=== PATIENT | female | born 1970 | race Caucasian/White ===

== ENCOUNTER 2020-07-07 12:00 | Inpatient (IN) | payer OTHER ==
[~2020-07-07] VITALS: Ht 167.6 cm; Wt 126.3 kg
[2020-07-07 10:38] LABS: APPEARANCE,URINE Clear (CLEAR); BILIRUBIN,URINE Negative (NEGATIVE); COLOR,URINE Yellow (YELLOW); GLUCOSE, URINE (UA) Negative (NEGATIVE); KETONES,URINE Negative (NEGATIVE); LEUKOCYTE ESTERASE ,URINE Small (NEGATIVE); NITRATE,URINE Negative (NEGATIVE); OCCULT BLOOD,URINE Negative (NEGATIVE); PROTEIN,URINE Negative (NEGATIVE)
[2020-07-07 10:40] LABS: EOSINOPHILS % (AUTO) 5.4 % (0.0-8.0); HEMATOCRIT 45.6 % (36-48); MEAN CORPUSCULAR HEMOGLOBIN 29.6 pg (27.0-33.0); MEAN CORPUSCULAR HGB CONC 30.9 g/dL (32.0-36.0); MEAN CORPUSCULAR VOLUME 95.6 fL (79-99); MONOCYTES % (AUTO) 7.3 % (3.0-13.0); PLATELET COUNT (AUTO) 248 K/uL (130-400); RED BLOOD CELL COUNT(AUTO) 4.77 MIL/uL (4.00-5.50); WHITE BLOOD COUNT (AUTO) 7.2 K/uL (4.8-10.8)
[2020-07-07 10:45] LABS: CREATININE 0.8 mg/dL (0.5-1.5); POTASSIUM 5.1 mmol/L (3.5-5.1)
[2020-07-07 10:48] LABS: INR 0.94 (0.85-1.15); PROTHROMBIN TIME 10.3 SEC (9.6-11.6)
[2020-07-07 11:31] LABS: BACTERIA,URINE Rare /HPF (None Seen); RBC,URINE None Seen /HPF (0-1); YEAST,URINE BUDDING Few /HPF (None Seen)
[2020-07-08 16:16] VITALS: BP 144/89
[2020-07-08] MEDS ORDERED: VENL-191 PO (16:43)
[2020-07-08] MEDS ORDERED: ACET1TAB25 PO (16:43)
[2020-07-11] VITALS (23 sets, daily range): BP systolic 96–161; BP diastolic 50–97
[2020-07-11] MEDS ORDERED: LACTATED RINGERS 1000ML 1,000 ML IV ONE (06:48)
[2020-07-11] MEDS ORDERED: CEFAZOLIN SODIUM 1 GM VIAL ONE ×2 (07:10→08:09)
[2020-07-11] MEDS ORDERED: PROPOFOL 10 MG/ML 20ML VIAL IV ONE (07:43)
[2020-07-11] MEDS ORDERED: ROCURONIUM 10MG/1ML SYR 10 MG/ML ML ONE ×2 (07:43→10:43)
[2020-07-11] MEDS ORDERED: LIDOCAINE PF 100MG/5ML (2%) SYRINGE 5ML ONE (07:43)
[2020-07-11] MEDS ORDERED: SUCCINYLCHOLINE CHLORIDE 20 MG/ML 10 ML VIAL ONE (07:43)
[2020-07-11] MEDS ORDERED: FENTANYL CITRATE PF 50 MCG/1 ML 2ML VIAL ONE ×2 (07:44→12:19)
[2020-07-11] MEDS ORDERED: ROPIVACAINE 0.5% 5MG/ML 30ML IJ ONE (07:47)
[2020-07-11] MEDS ORDERED: CEFAZOLIN SODIUM 100 GM IV PRN (08:00)
[2020-07-11] MEDS ORDERED: GENTAMICIN SULFATE 240 MG in 0.9%NACL 100ML 100 ML IV PRN (08:00)
[2020-07-11] MEDS ORDERED: TRANEXAMIC ACID 1000MG/10ML ONE ×2 (08:09→13:08)
[2020-07-11] MEDS ORDERED: ACETAMINOPHEN 500 MG TABLET ONE (08:28)
[2020-07-11] MEDS ORDERED: METOCLOPRAMIDE 10 MG/2 ML VIAL ONE (08:28)
[2020-07-11] MEDS ORDERED: KETOROLAC 15MG/ML VIAL (15MG/ML) ONE (08:29)
[2020-07-11] MEDS ORDERED: CELECOXIB 200 MG CAP ONE (08:29)
[2020-07-11] MEDS ORDERED: MIDAZOLAM HCL 1 MG/ML 2ML VIAL ONE (09:46)
[2020-07-11] MEDS ORDERED: NEOSTIGMINE 5MG/5ML SYR IV ONE (12:03)
[2020-07-11] MEDS ORDERED: GLYCOPYRROLATE 1 MG/5 ML SYRINGE ONE (12:03)
[2020-07-11] MEDS ORDERED: MEPERIDINE-PF 25 MG/ML SYG ONE ×3 (12:11→13:22)
[2020-07-11] MEDS ORDERED: ONDANSETRON 4MG INJ ONE (12:11)
[2020-07-11] MEDS ORDERED: KETOROLAC 30MG VIAL (30MG/ML) ONE (12:11)
[2020-07-11] MEDS ORDERED: LIDOCAINE HCL-MPF 1% 2ML VIAL IV PRN (12:30)
[2020-07-11] MEDS ORDERED: CALCIUM CARB 500MG PO PRN (12:30)
[2020-07-11] MEDS: ACETAMINOPHEN 500 MG TABLET PO SCH ×2 (12:30→20:46)
[2020-07-11] MEDS ORDERED: KCL 20 MEQ ERTAB PO PRN (12:30)
[2020-07-11] MEDS ORDERED: POTASSIUM CHLORIDE 20MEQ/100ML 100 ML IV PRN (12:30)
[2020-07-11] MEDS ORDERED: POTASSIUM CHLORIDE 10% ELIXIR 20 MEQ/15 ML UDCUP PO PRN (12:30)
[2020-07-11] MEDS ORDERED: OXYCODONE HCL 5 MG TAB PO PRN (12:30)
[2020-07-11] MEDS ORDERED: FERROUS FUMARATE 324 MG TABLET PO PRN (12:30)
[2020-07-11] MEDS ORDERED: TEMAZEPAM 15 MG CAPSULE PO PRN (12:30)
[2020-07-11] MEDS ORDERED: DiphenhydrAMINE HCL 50 MG/ML VIAL IVP PRN (12:30)
[2020-07-11] MEDS ORDERED: ONDANSETRON 4MG INJ IVP PRN (12:30)
[2020-07-11] MEDS ORDERED: MORPHINE 2 MG SYG ONE (13:34)
[2020-07-11] MEDS: KETOROLAC 15MG/ML VIAL (15MG/ML) IV PRN (14:09)
[2020-07-11] MEDS: 0.9%NACL 1000ML 1,000 ML IV SCH (14:10)
[2020-07-11] MEDS: OXYCODONE HCL 5 MG TAB PO PRN ×2 (15:02→20:49)
[2020-07-11] MEDS: CEFAZOLIN SODIUM 100 GM IV SCH (17:43)
[2020-07-11] MEDS: CELECOXIB 200 MG CAP PO SCH (20:43)
[2020-07-11] MEDS: FAMOTIDINE 20MG TAB PO SCH (20:43)
[2020-07-11] MEDS: PREGABALIN 25 MG CAP PO SCH (20:43)
[2020-07-11] MEDS: ASPIRIN 81MG CHEW TAB PO SCH (20:43)
[2020-07-12] MEDS: CEFAZOLIN SODIUM 100 GM IV SCH (01:30)
[2020-07-12] MEDS: KETOROLAC 15MG/ML VIAL (15MG/ML) IV PRN ×3 (02:48→15:06)
[2020-07-12] MEDS: OXYCODONE HCL 5 MG TAB PO PRN ×4 (02:49→18:55)
[2020-07-12 04:02] VITALS: BP 117/50
[2020-07-12] MEDS: ACETAMINOPHEN 500 MG TABLET PO SCH ×3 (04:30→19:53)
[2020-07-12 05:03] LABS: MEAN CORPUSCULAR HGB CONC 31.7 g/dL (32.0-36.0); MEAN CORPUSCULAR VOLUME 94.7 fL (79-99); RED BLOOD CELL COUNT(AUTO) 3.8 MIL/uL (4.00-5.50); RED CELL DISTRIBUTION WIDTH 13.1 % (11.0-15.5); WHITE BLOOD COUNT (AUTO) 9.5 K/uL (4.8-10.8)
[2020-07-12 05:21] LABS: CREATININE 0.9 mg/dL (0.5-1.5); POTASSIUM 3.9 mmol/L (3.5-5.1)
[2020-07-12] MEDS: TRAMADOL HCL 50 MG TABLET PO PRN ×2 (06:05→13:38)
[2020-07-12 07:00] VITALS: BP 106/58
[2020-07-12] MEDS: 0.9%NACL 1000ML 1,000 ML IV SCH (08:30)
[2020-07-12] MEDS: PREGABALIN 25 MG CAP PO SCH ×2 (09:02→19:52)
[2020-07-12] MEDS: CELECOXIB 200 MG CAP PO SCH ×2 (09:02→19:53)
[2020-07-12] MEDS: VENLAFAXINE HCL 75 MG TAB PO SCH (09:02)
[2020-07-12] MEDS: ASPIRIN 81MG CHEW TAB PO SCH ×2 (09:03→19:52)
[2020-07-12] MEDS: POLYETHYLENE GLYCOL 3350 17 GM POWD.PACK PO SCH (09:03)
[2020-07-12] MEDS: FAMOTIDINE 20MG TAB PO SCH ×2 (09:03→20:09)
[2020-07-12 11:30] VITALS: BP 128/51
[2020-07-12 16:00] VITALS: BP 132/62
[2020-07-12 20:01] VITALS: BP 106/49
[2020-07-13 00:33] VITALS: BP 119/68
[2020-07-13] MEDS: KETOROLAC 15MG/ML VIAL (15MG/ML) IV PRN ×3 (02:14→15:10)
[2020-07-13] MEDS: OXYCODONE HCL 5 MG TAB PO PRN ×4 (02:15→19:56)
[2020-07-13] MEDS: ACETAMINOPHEN 500 MG TABLET PO SCH ×3 (04:30→16:53)
[2020-07-13 04:37] VITALS: BP 102/57
[2020-07-13 08:00] VITALS: BP 131/69
[2020-07-13] MEDS: ASPIRIN 81MG CHEW TAB PO SCH ×2 (09:06→19:55)
[2020-07-13] MEDS: CELECOXIB 200 MG CAP PO SCH ×2 (09:07→19:55)
[2020-07-13] MEDS: POLYETHYLENE GLYCOL 3350 17 GM POWD.PACK PO SCH (09:07)
[2020-07-13] MEDS: VENLAFAXINE HCL 75 MG TAB PO SCH (09:07)
[2020-07-13] MEDS: FAMOTIDINE 20MG TAB PO SCH ×2 (09:07→19:55)
[2020-07-13] MEDS: PREGABALIN 25 MG CAP PO SCH ×2 (09:07→19:55)
[2020-07-13 12:00] VITALS: BP 120/55
[2020-07-13 16:00] VITALS: BP 126/57
[2020-07-13 20:00] VITALS: BP 113/65
[2020-07-13] MEDS ORDERED: ASPI-1005 PO (20:18)
[2020-07-13] MEDS ORDERED: HYDR-4060 PO (20:18)
[2020-07-14] MEDS ORDERED: BISACODYL 10 MG SUPP.RECT RC PRN (12:30)
== END 2020-07-13 21:40 | disposition home health service (06) | DRG 302 ==
LOC: EDSTATUS 12:00 → DAHIP 07-11 05:41 → 4AH 07-11 12:58
PROVIDERS: ADMIT Orthopaedic Surgery; ATTEND Orthopaedic Surgery
PROC: 0SRC0J9 Replacement of Right Knee Joint with Synthetic Substitute, Cemented, Open Approach (ICD-10-PCS; principal; 2020-07-11 09:30)
DX: M17.0 Bilateral primary osteoarthritis of knee (principal); E66.01 Morbid (severe) obesity due to excess calories; Z20.822 Contact with and (suspected) exposure to COVID-19; G89.29 Other chronic pain; D64.9 Anemia, unspecified; Z68.41 Body mass index [BMI] 40.0-44.9, adult
CPT/HCPCS: 36415; 80048; 81001; 85025; 85027; 85610; 87641; 97039; G0378; J0330; J0690; J1200; J1580; J1885; J2001; J2175; J2250; J2405; J2704; J2710; J2765; J2795; J3010; J3490; J7120; U0003

== ENCOUNTER 2021-01-26 16:00 | Observation (INO) | payer OTHER ==
[~2021-01-26] VITALS: Ht 165.1 cm; Wt 124.2 kg
[2021-01-26 10:30] LABS: APPEARANCE,URINE CLEAR (CLEAR); BILIRUBIN,URINE SMALL (NEGATIVE); COLOR,URINE YELLOW (YELLOW); GLUCOSE, URINE (UA) NEGATIVE (NEGATIVE); KETONES,URINE 5 mg/dL (NEGATIVE); LEUKOCYTE ESTERASE ,URINE TRACE (NEGATIVE); NITRATE,URINE NEGATIVE (NEGATIVE); OCCULT BLOOD,URINE NEGATIVE (NEGATIVE); PROTEIN,URINE NEGATIVE (NEGATIVE); UROBILINOGEN,URINE 0.2 mg/dL (0.2-1.0)
[2021-01-26 10:34] LABS: BASOPHILS % (AUTO) 1.1 % (0.0-5.0); EOSINOPHILS % (AUTO) 5.4 % (0.0-8.0); HEMATOCRIT 44.4 % (36-48); LYMPHOCYTES % (AUTO) 30.4 % (21.0-51.0); MEAN CORPUSCULAR HEMOGLOBIN 31.5 pg (27.0-33.0); MEAN CORPUSCULAR HGB CONC 31.8 g/dL (32.0-36.0); MEAN CORPUSCULAR VOLUME 99.3 fL (79-99); MONOCYTES % (AUTO) 5.9 % (3.0-13.0); NEUTROPHILS % (AUTO) 56.7 % (40.0-77.0); PLATELET COUNT (AUTO) 257 K/uL (130-400); RED BLOOD CELL COUNT(AUTO) 4.47 MIL/uL (4.00-5.50); RED CELL DISTRIBUTION WIDTH 12.7 % (11.0-15.5); WHITE BLOOD COUNT (AUTO) 6.5 K/uL (4.8-10.8)
[2021-01-26 10:46] LABS: INR 0.94 (0.85-1.15); PROTHROMBIN TIME 10.3 SEC (9.6-11.6)
[2021-01-26 10:57] LABS: CREATININE 0.9 mg/dL (0.5-1.5); POTASSIUM 4.4 mmol/L (3.5-5.1)
[2021-01-26 11:03] LABS: BACTERIA,URINE Moderate /HPF (None Seen); RBC,URINE None Seen /HPF (0-1); SQUAMOUS EPITHELIAL CELL,UR Rare /HPF (0-2); WBC,URINE 0-1 /HPF (0-1)
[~2021-01-26 16:00] MED LIST: VENL-191 PO
[2021-01-27 12:23] VITALS: BP 173/83
[2021-01-27] MEDS ORDERED: NAPR-1196 PO (12:52)
[2021-01-27] MEDS ORDERED: ACET-66 PO (12:52)
[2021-01-30] VITALS (21 sets, daily range): BP systolic 110–187; BP diastolic 64–111
[2021-01-30] MEDS ORDERED: LACTATED RINGERS 1000ML 1,000 ML IV ONE (09:37)
[2021-01-30] MEDS: CEFAZOLIN SODIUM 1 GM VIAL ONE ×2 (10:13→14:46)
[2021-01-30] MEDS ORDERED: ACETAMINOPHEN 500 MG TABLET ONE (13:10)
[2021-01-30] MEDS ORDERED: CELECOXIB 200 MG CAP ONE (13:10)
[2021-01-30] MEDS ORDERED: TRANEXAMIC ACID 1000MG/10ML ONE ×3 (13:11→16:45)
[2021-01-30] MEDS ORDERED: CEFAZOLIN SODIUM 1 GM VIAL ONE ×2 (13:33→19:34)
[2021-01-30] MEDS ORDERED: NEOSTIGMINE 5MG/5ML SYR IV ONE (13:59)
[2021-01-30] MEDS ORDERED: ONDANSETRON 4MG INJ ONE (13:59)
[2021-01-30] MEDS ORDERED: PROPOFOL 10 MG/ML 20ML VIAL IV ONE (13:59)
[2021-01-30] MEDS ORDERED: DEXAMETHASONE SOD PHOSPHATE 10MG/ML 1ML VIAL ONE (13:59)
[2021-01-30] MEDS ORDERED: SUCCINYLCHOLINE CHLORIDE 20 MG/ML 10 ML VIAL ONE ×2 (13:59→14:03)
[2021-01-30] MEDS ORDERED: GLYCOPYRROLATE 1 MG/5 ML SYRINGE ONE (13:59)
[2021-01-30] MEDS ORDERED: LIDOCAINE PF 100MG/5ML (2%) SYRINGE 5ML ONE ×2 (13:59→14:03)
[2021-01-30] MEDS ORDERED: FENTANYL CITRATE PF 50 MCG/1 ML 2ML VIAL ONE ×3 (14:00→17:50)
[2021-01-30] MEDS ORDERED: MIDAZOLAM HCL 1 MG/ML 2ML VIAL ONE (14:00)
[2021-01-30] MEDS ORDERED: ROCURONIUM 10MG/1ML SYR 10 MG/ML ML ONE (14:00)
[2021-01-30] MEDS ORDERED: ROPIVACAINE 0.5% 5MG/ML 30ML IJ ONE (14:09)
[2021-01-30] MEDS ORDERED: LIDOCAINE HCL-MPF 1% 2ML VIAL IV PRN (16:30)
[2021-01-30] MEDS ORDERED: POTASSIUM CHLORIDE 10% ELIXIR 20 MEQ/15 ML UDCUP PO PRN (16:30)
[2021-01-30] MEDS ORDERED: KCL 20 MEQ ERTAB PO PRN (16:30)
[2021-01-30] MEDS ORDERED: 0.9%NACL 1000ML 1,000 ML IV SCH (16:30)
[2021-01-30] MEDS ORDERED: FERROUS FUMARATE 324 MG TABLET PO PRN (16:30)
[2021-01-30] MEDS ORDERED: ONDANSETRON 4MG INJ IVP PRN (16:30)
[2021-01-30] MEDS ORDERED: OXYCODONE HCL 5 MG TAB PO PRN (16:30)
[2021-01-30] MEDS ORDERED: CALCIUM CARB 500MG PO PRN (16:30)
[2021-01-30] MEDS ORDERED: TEMAZEPAM 15 MG CAPSULE PO PRN (16:30)
[2021-01-30] MEDS: ACETAMINOPHEN 500 MG TABLET PO SCH ×2 (16:30→23:33)
[2021-01-30] MEDS ORDERED: POTASSIUM CHLORIDE 20MEQ/100ML 100 ML IV PRN (16:30)
[2021-01-30] MEDS ORDERED: DiphenhydrAMINE HCL 50 MG/ML VIAL IVP PRN (16:30)
[2021-01-30] MEDS ORDERED: MEPERIDINE-PF 25 MG/ML SYG ONE ×2 (17:01→17:13)
[2021-01-30] MEDS ORDERED: VENLAFAXINE HCL XR 37.5 MG CAP PO ONE (19:42)
[2021-01-30] MEDS: PREGABALIN 25 MG CAP PO SCH (20:52)
[2021-01-30] MEDS: CELECOXIB 200 MG CAP PO SCH (20:52)
[2021-01-30] MEDS: FAMOTIDINE 20MG TAB PO SCH (20:53)
[2021-01-30] MEDS: CEFAZOLIN 3GM /D5W 100ML 100 ML IV SCH (20:53)
[2021-01-30] MEDS: ASPIRIN 81 MG EC TAB PO SCH (20:53)
[2021-01-30] MEDS: VENLAFAXINE HCL XR 37.5 MG CAP PO SCH (21:32)
[2021-01-31] MEDS: CEFAZOLIN 3GM /D5W 100ML 100 ML IV SCH (04:08)
[2021-01-31] MEDS: TRAMADOL HCL 50 MG TABLET PO PRN ×2 (04:13→17:19)
[2021-01-31 04:55] VITALS: BP 123/73
[2021-01-31 05:16] LABS: MEAN CORPUSCULAR HEMOGLOBIN 31.2 pg (27.0-33.0); MEAN CORPUSCULAR HGB CONC 31.2 g/dL (32.0-36.0); MEAN CORPUSCULAR VOLUME 100.2 fL (79-99); RED BLOOD CELL COUNT(AUTO) 4.29 MIL/uL (4.00-5.50); RED CELL DISTRIBUTION WIDTH 12.8 % (11.0-15.5); WHITE BLOOD COUNT (AUTO) 11.4 K/uL (4.8-10.8)
[2021-01-31 05:39] LABS: CREATININE 1.1 mg/dL (0.5-1.5); POTASSIUM 5.3 mmol/L (3.5-5.1)
[2021-01-31 08:00] VITALS: BP 127/86
[2021-01-31] MEDS: ACETAMINOPHEN 500 MG TABLET PO SCH ×2 (08:03→17:10)
[2021-01-31] MEDS: PREGABALIN 25 MG CAP PO SCH ×2 (08:03→20:00)
[2021-01-31] MEDS: OXYCODONE HCL 5 MG TAB PO PRN ×2 (08:04→12:22)
[2021-01-31] MEDS: ASPIRIN 81 MG EC TAB PO SCH ×2 (08:04→20:00)
[2021-01-31] MEDS: FAMOTIDINE 20MG TAB PO SCH ×2 (08:04→20:00)
[2021-01-31] MEDS: CELECOXIB 200 MG CAP PO SCH ×2 (08:04→20:00)
[2021-01-31] MEDS: POLYETHYLENE GLYCOL 3350 17 GM POWD.PACK PO SCH (08:05)
[2021-01-31] MEDS ORDERED: KAYEXALATE 15GM/60ML PO SCH (09:00)
[2021-01-31] MEDS ORDERED: VENLAFAXINE HCL 75 MG TAB PO SCH (09:00)
[2021-01-31 10:30] VITALS: BP 138/77
[2021-01-31] MEDS: KETOROLAC 15MG/ML VIAL (15MG/ML) IV PRN (14:27)
[2021-01-31 15:30] VITALS: BP 155/72
[2021-01-31] MEDS: VENLAFAXINE HCL XR 37.5 MG CAP PO SCH (19:59)
[2021-01-31 20:38] VITALS: BP 129/76
[2021-02-01] VITALS (7 sets, daily range): BP systolic 108–156; BP diastolic 59–91
[2021-02-01] MEDS: ACETAMINOPHEN 500 MG TABLET PO SCH ×3 (01:01→20:56)
[2021-02-01 05:16] LABS: BASOPHILS % (AUTO) 0.4 % (0.0-5.0); EOSINOPHILS % (AUTO) 2.2 % (0.0-8.0); HEMATOCRIT 38.7 % (36-48); LYMPHOCYTES % (AUTO) 16.2 % (21.0-51.0); MEAN CORPUSCULAR HEMOGLOBIN 31.4 pg (27.0-33.0); MEAN CORPUSCULAR HGB CONC 31.8 g/dL (32.0-36.0); MEAN CORPUSCULAR VOLUME 98.7 fL (79-99); MONOCYTES % (AUTO) 9.4 % (3.0-13.0); NEUTROPHILS % (AUTO) 71.5 % (40.0-77.0); PLATELET COUNT (AUTO) 203 K/uL (130-400); RED BLOOD CELL COUNT(AUTO) 3.92 MIL/uL (4.00-5.50); RED CELL DISTRIBUTION WIDTH 12.8 % (11.0-15.5); WHITE BLOOD COUNT (AUTO) 9.1 K/uL (4.8-10.8)
[2021-02-01 05:24] LABS: CREATININE 0.8 mg/dL (0.5-1.5); POTASSIUM 3.6 mmol/L (3.5-5.1)
[2021-02-01] MEDS: OXYCODONE HCL 5 MG TAB PO PRN ×2 (08:23→15:39)
[2021-02-01] MEDS: PREGABALIN 25 MG CAP PO SCH ×2 (10:02→20:57)
[2021-02-01] MEDS: POLYETHYLENE GLYCOL 3350 17 GM POWD.PACK PO SCH (10:02)
[2021-02-01] MEDS: CELECOXIB 200 MG CAP PO SCH ×2 (10:02→20:57)
[2021-02-01] MEDS: FAMOTIDINE 20MG TAB PO SCH ×2 (10:02→20:57)
[2021-02-01] MEDS: ASPIRIN 81 MG EC TAB PO SCH ×2 (10:02→20:57)
[2021-02-01] MEDS: KETOROLAC 15MG/ML VIAL (15MG/ML) IV PRN ×2 (11:09→19:20)
[2021-02-01] MEDS: VENLAFAXINE HCL XR 37.5 MG CAP PO SCH (20:55)
[2021-02-02 03:30] VITALS: BP 141/94
[2021-02-02] MEDS: ACETAMINOPHEN 500 MG TABLET PO SCH ×3 (06:00→20:35)
[2021-02-02 07:30] VITALS: BP 144/90
[2021-02-02] MEDS: ASPIRIN 81 MG EC TAB PO SCH ×2 (07:32→20:34)
[2021-02-02] MEDS: FAMOTIDINE 20MG TAB PO SCH ×2 (07:32→20:34)
[2021-02-02] MEDS: PREGABALIN 25 MG CAP PO SCH ×2 (07:32→20:34)
[2021-02-02] MEDS: POLYETHYLENE GLYCOL 3350 17 GM POWD.PACK PO SCH (07:32)
[2021-02-02] MEDS: CELECOXIB 200 MG CAP PO SCH ×2 (07:32→20:34)
[2021-02-02] MEDS: OXYCODONE HCL 5 MG TAB PO PRN ×4 (07:33→22:15)
[2021-02-02 11:00] VITALS: BP 116/75
[2021-02-02 16:00] VITALS: BP 139/80
[2021-02-02] MEDS ORDERED: BISACODYL 10 MG SUPP.RECT RC PRN (16:30)
[2021-02-02 19:15] VITALS: BP 131/80
[2021-02-02] MEDS: VENLAFAXINE HCL XR 37.5 MG CAP PO SCH (20:34)
[2021-02-02] MEDS ORDERED: AEC81 PO (21:26)
[2021-02-02] MEDS ORDERED: HYDR-4060 PO (21:26)
[2021-02-02] MEDS: KETOROLAC 15MG/ML VIAL (15MG/ML) IV PRN (22:13)
== END 2021-02-02 22:10 | disposition home or self-care (01) ==
LOC: DAHIP 01-30 08:53 → INTOOBSV 01-30 08:53 → 4AH 01-30 17:42
PROVIDERS: ADMIT Orthopaedic Surgery; ATTEND Orthopaedic Surgery
DX: M17.12 Unilateral primary osteoarthritis, left knee (principal); Z20.822 Contact with and (suspected) exposure to COVID-19; E87.5 Hyperkalemia; E66.9 Obesity, unspecified; J44.9 Chronic obstructive pulmonary disease, unspecified; I10 Essential (primary) hypertension; K21.9 Gastro-esophageal reflux disease without esophagitis; Z87.891 Personal history of nicotine dependence; Z96.651 Presence of right artificial knee joint; Z79.899 Other long term (current) drug therapy
CPT/HCPCS: 27447; 36415 ×3; 64447; 76942; 80048 ×3; 81001; 85025 ×2; 85027; 85610; 87088; 87635; 87641; 96365; 96366 ×2; 96375 ×2; 96376 ×2; 97039 ×6; 97116 ×6; 97161; 97530 ×6; A4215; A4221; A4222; A4223; A4649 ×4; A4663; A4930 ×2; A5120; A9272; C1776; G0378 ×74; J0330 ×2; J0690 ×3; J1100; J1885 ×4; J2001 ×2; J2175 ×2; J2250; J2405 ×2; J2704; J2710; J2795; J3010 ×3; J3490 ×3; J7120 ×2